=== PATIENT | female | born 1995 | race Caucasian/White ===

== ENCOUNTER 2018-07-03 11:24 | Emergency (ER) | payer MEDICAID ==
[~2018-07-03] VITALS: Ht 162.6 cm; Wt 83.3 kg
[~2018-07-03 11:24] MED LIST: BIRTHCONTROL PO; FAMO-79 PO; PANT20TA2 PO
[2018-07-03 11:33] VITALS: BP 119/73
[2018-07-03] MEDS ORDERED: DIAZEPAM 5 MG TABLET ONE (12:15)
[2018-07-03] MEDS ORDERED: KETOROLAC 30 MG/1 ML ONE (12:15)
[2018-07-03] MEDS ORDERED: DIAZEPAM 5 MG TABLET PO ONE (12:30)
[2018-07-03] MEDS ORDERED: KETOROLAC 30 MG/1 ML IM ONE (12:30)
== END 2018-07-03 12:59 | disposition home or self-care (01) ==
LOC: ED 12:00
DX: S39.012A Strain of muscle, fascia and tendon of lower back, initial encounter (principal); K21.9 Gastro-esophageal reflux disease without esophagitis; F17.200 Nicotine dependence, unspecified, uncomplicated; W01.0XXA Fall on same level from slipping, tripping and stumbling without subsequent striking against object, initial encounter; Y93.89 Activity, other specified; Y92.89 Other specified places as the place of occurrence of the external cause; Y99.8 Other external cause status
CPT/HCPCS: 72110; 72220; 96372; 99284; J1885

== ENCOUNTER 2018-10-03 20:22 | Emergency (ER) | payer MEDICAID ==
[~2018-10-03] VITALS: Ht 162.6 cm; Wt 80.0 kg
[2018-10-03 20:36] VITALS: BP 149/90
== END 2018-10-03 22:11 | disposition home or self-care (01) ==
LOC: ED 22:00
DX: J06.9 Acute upper respiratory infection, unspecified (principal); F17.210 Nicotine dependence, cigarettes, uncomplicated
CPT/HCPCS: 71046; 87081; 87880; 99284